=== PATIENT | male | born 1965 | race Caucasian/White ===

== ENCOUNTER 2018-02-07 12:09 | Day surgery (SDC) | payer OTHER ==
[2018-02-07] MEDS ORDERED: LIDOCAINE 2% (SDV) 5 ML INJ (14:47)
[2018-02-07] MEDS ORDERED: PROPOFOL 60 ML (14:47)
== END 2018-02-07 15:44 | disposition home or self-care (01) ==
LOC: SUR 12:09 → GIL 12:17 → SUR 15:44
DX: Z12.11 Encounter for screening for malignant neoplasm of colon (principal); K64.8 Other hemorrhoids; K29.70 Gastritis, unspecified, without bleeding
CPT/HCPCS: 43239; 88305